=== PATIENT | female | born 1995 | race Caucasian/White ===

== ENCOUNTER 2018-02-21 04:18 | Inpatient (IN) | payer MEDICAID, OTHER ==
[~2018-02-21] VITALS: Ht 157.5 cm; Wt 81.6 kg
[~2018-02-21 04:18] MED LIST: FERR325E14 PO; IBUP-2213 PO; PREN-385 PO; PREN1SGL25 PO
[2018-02-21] MEDS ORDERED: LACTATED RINGERS 1,000 ML IV SCH (04:34)
[2018-02-21] MEDS ORDERED: OXYTOCIN 20 UNITS in LACTATED RINGERS 1,000 ML IV SCH (04:35)
[2018-02-21] MEDS ORDERED: PROMETHAZINE 25 MG/ML VIAL IVP PRN (04:35)
[2018-02-21] MEDS ORDERED: AMPICILLIN 2,000 MG in NACL 0.9% MINI-BAG PLUS 100 ML IV SCH (04:35)
[2018-02-21] MEDS ORDERED: METHYLERGONOVINE 0.2 MG/ML AMP IM PRN ×2 (04:35→06:20)
[2018-02-21] MEDS ORDERED: OXYTOCIN 10 UNITS/ML VIAL IM ONE (04:35)
[2018-02-21] MEDS ORDERED: NALBUPHINE HYDROCHLORIDE 10 MG/ML VIAL IVP PRN (04:35)
[2018-02-21] MEDS ORDERED: AMPICILLIN 2,000 MG VIAL ONE (05:07)
[2018-02-21] MEDS ORDERED: NALBUPHINE 10 MG/ML AMP ONE (05:07)
[2018-02-21] MEDS ORDERED: PROMETHAZINE 25 MG/ML VIAL ONE (05:08)
[2018-02-21 05:12] LABS: BASOPHILS % (AUTO) 0.4 % (0.0-2.0); EOSINOPHILS # (AUTO) 0.1 K/uL (0-0.4); EOSINOPHILS % (AUTO) 1.2 % (0.0-4.0); HEMATOCRIT 38.7 % (36-48); HEMOGLOBIN 12.9 g/dL (12.0-16.0); LYMPHOCYTES # (AUTO) 4.5 K/uL (2.5-16.5); LYMPHOCYTES % (AUTO) 34.5 % (20.5-51.1); MEAN CORPUSCULAR HEMOGLOBIN 30 pg (27-31); MEAN CORPUSCULAR HGB CONC 33 g/dL (33-37); MEAN CORPUSCULAR VOLUME 89.5 fL (80-94); MONOCYTES % (AUTO) 7.6 % (1.7-9.3); NEUTROPHILS # (AUTO) 7.3 K/uL (1.8-7.7); NEUTROPHILS % (AUTO) 56.3 % (42.2-75.2); PLATELET COUNT (AUTO) 234 K/uL (140-450); RED BLOOD CELL COUNT(AUTO) 4.33 MIL/uL (4.20-5.40); RED CELL DISTRIBUTION WIDTH 13.4 % (11.6-13.7)
[2018-02-21] MEDS ORDERED: OXYTOCIN 10 UNITS/ML VIAL ONE (05:46)
[2018-02-21] MEDS ORDERED: OXYTOCIN 20 UNITS/LR PREMIX 1,000 ML IV ONE (05:46)
[2018-02-21 05:51] LABS: ANION GAP 13.2 (8-16); CARBON DIOXIDE 25.5 mmol/L (21-32); CREATININE 0.7 mg/dL (0.6-1.3); POTASSIUM 3.7 mmol/L (3.5-5.1)
[2018-02-21 05:57] LABS: ALBUMIN 2.7 g/dL (3.4-5.0); TOTAL BILIRUBIN 0.3 mg/dL (0.0-1.0)
[2018-02-21] MEDS ORDERED: IBUPROFEN 800 MG TAB PO PRN (06:20)
[2018-02-21] MEDS ORDERED: OXYTOCIN 10 UNITS/ML VIAL IM PRN (06:20)
[2018-02-21] MEDS ORDERED: BENZOCAINE/MENTHOL 20%-0.5% 60 GM CAN TP PRN (06:20)
[2018-02-21] MEDS ORDERED: TEMAZEPAM 15 MG CAP PO PRN (06:20)
[2018-02-21] MEDS ORDERED: MEASLES, MUMPS, AND RUBELLA 1 VIAL SQVAC PRN (06:20)
[2018-02-21] MEDS ORDERED: oxyCODONE/APAP 5/325 MG 1 TAB TAB PO PRN (06:20)
[2018-02-21] MEDS ORDERED: HYDROcodone/APAP 5/325 MG 1 TAB TAB PO PRN (06:20)
[2018-02-21 06:54] VITALS: BP 129/76
[2018-02-21] MEDS ORDERED: PREN-546 PO (06:54)
[2018-02-21] MEDS ORDERED: FERR325E14 PO (06:54)
[2018-02-21] MEDS ORDERED: AMPICILLIN 1,000 MG in NACL 0.9% MINI-BAG PLUS 50 ML IV SCH (08:00)
--- NOTE | 2018-02-21 09:55 | NUR ---
PATIENT HAS BEEN SCREENED AND CATEGORIZED LOW NUTRITION RISK. PATIENT WILL BE SEEN WITHIN 7 DAYS OF ADMISSION. 02/27/[address]
[2018-02-21 10:00] LABS: APPEARANCE,URINE CLOUDY (CLEAR); BILIRUBIN,URINE NEGATIVE (NEGATIVE); BLOOD, URINE 3+ (NEGATIVE); COLOR,URINE RED (YELLOW); LEUKOCYTE ESTERASE ,URINE 2+ (NEGATIVE); NITRITE, URINE POSITIVE (NEGATIVE); PH,URINE 7.5 (5.0-9.0); UGLUCOSE TRACE (NEGATIVE)
[2018-02-21 10:03] LABS: RBC,URINE 50-80 /HPF (0-5)
[2018-02-21 10:04] LABS: WBC,URINE 6-15 (FEW) /HPF (0-5)
[2018-02-21 10:20] LABS: BARBITURATE, URINE NEG. ng/ml (NEG <=200); BENZODIAZEPINE, URINE NEG. ng/mL (NEG <=200); CANNABINOID, URINE NEG. ng/mL (NEG <=50); COCAINE, URINE NEG. ng/mL (NEG <=300); OPIATE, URINE NEG. ng/mL (NEG <=2000); PHENCYCLIDINE SCREEN,URINE NEG. ng/mL (NEG <=25)
[2018-02-21] MEDS ORDERED: DOCUSATE SOD/SENNA 50/8.6 MG 1 TAB PO SCH (21:00)
[2018-02-22 06:40] LABS: HEMATOCRIT 36.4 % (36-48); HEMOGLOBIN 12.1 g/dL (12.0-16.0)
[2018-02-22 08:34] LABS: HEPATITIS B SURFACE ANTIGEN Negative (Negative)
== END 2018-02-23 13:35 | disposition home or self-care (01) | DRG 560 ==
LOC: MLD 04:18 → OBSVTOIN 04:34 → MFCC 09:10
PROVIDERS: ADMIT Obstetrics & Gynecology; ATTEND Obstetrics & Gynecology
PROC: 10E0XZZ Delivery of Products of Conception, External Approach (ICD-10-PCS; principal; 2018-02-21)
PROC: 3E0234Z Introduction of Serum, Toxoid and Vaccine into Muscle, Percutaneous Approach (ICD-10-PCS; 2018-02-23)
DX: O80 Encounter for full-term uncomplicated delivery (principal); Z23 Encounter for immunization; Z37.0 Single live birth; Z3A.38 38 weeks gestation of pregnancy
CPT/HCPCS: 36415; 59409; 80053; 80305; 81001; 85018; 85025; 86592; 86762; 86886; 86900; 86901; 87086; 87340; 87653-90; 90707; 90715; G0378; J0290; J2300; J2550; J2590; J7120

== ENCOUNTER 2018-04-11 19:56 | Emergency (ER) | payer MEDICAID ==
[~2018-04-11] VITALS: Ht 157.5 cm; Wt 74.8 kg
[~2018-04-11 19:56] MED LIST changes: +PREN-546 PO
[2018-04-11 20:05] VITALS: BP 114/65
[2018-04-11 21:45] VITALS: BP 110/64
== END 2018-04-11 21:45 | disposition home or self-care (01) ==
LOC: MED 19:56
DX: K59.00 Constipation, unspecified (principal); Z79.899 Other long term (current) drug therapy
CPT/HCPCS: 76705; 99284; Q0092